=== PATIENT | female | born 1980 | race African-American/Black ===

== ENCOUNTER → 2022-11-25 11:02 | Outpatient (CLI) | payer OTHER, SELFPAY ==
[2022-11-27 16:56] LABS: QuantiFERON Mitogen Value >10.00 IU/mL (.); QuantiFERON Nil Value 0.22 IU/mL (.); QuantiFERON TB Gold Plus Negative (Negative); QuantiFERON TB1 Ag Value 0.09 IU/mL (.); QuantiFERON TB2 Ag Value 0.29 IU/mL (.)
== END ==
PROVIDERS: Referring Provider Dermatology; Visit Provider Dermatology
DX: L73.2 Hidradenitis suppurativa (principal)
CPT/HCPCS: 36415; 86480